=== PATIENT | male | born 1985 | race Caucasian/White ===

== ENCOUNTER 2016-12-12 14:56 | Emergency (ER) | payer OTHER ==
[2016-12-12 15:00] VITALS: BP 139/71
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
--- NOTE | 2016-12-12 15:43 | RAD ---
Left wrist, 3 views, 12/12/2016: History: Injury, pain There is spurring at the level of the distal radioulnar articulation. There is a small cyst in the lunate bone, likely on an arthritic or posttraumatic basis. No acute fracture or dislocation is identified. There is mild subcutaneous edema. IMPRESSION: 1. Mild degenerative change. 2. No acute bony abnormality is detected.
== END 2016-12-12 16:06 | disposition home or self-care (01) ==
LOC: ER 14:56
DX: M25.532 Pain in left wrist (principal); X58.XXXA Exposure to other specified factors, initial encounter; Y93.72 Activity, wrestling; Y92.89 Other specified places as the place of occurrence of the external cause; Y99.8 Other external cause status; F17.210 Nicotine dependence, cigarettes, uncomplicated
CPT/HCPCS: 29125; 73110; 99284-25

== ENCOUNTER 2018-01-30 12:29 | Emergency (ER) | payer OTHER ==
[~2018-01-30] VITALS: Ht 185.4 cm; Wt 111.6 kg
[2018-01-30 12:45] VITALS: BP 128/79
--- NOTE | 2018-01-30 13:14 | RAD ---
EXAM: Right humerus, 2 views. HISTORY: Fall. COMPARISON: None. FINDINGS: 2 views of the right humerus are obtained. There is no fracture, dislocation or subluxation. There is a suspected soft tissue hematoma along the lateral distal upper arm. IMPRESSION: No acute osseous finding. Electronically signed by: Dilcia Meade MD (01/30/2018 1:11 PM) [facility]
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
== END 2018-01-30 13:56 | disposition home or self-care (01) ==
LOC: ER 12:29
DX: S40.021A Contusion of right upper arm, initial encounter (principal); F17.210 Nicotine dependence, cigarettes, uncomplicated; Y04.0XXA Assault by unarmed brawl or fight, initial encounter; Y93.89 Activity, other specified; Y92.89 Other specified places as the place of occurrence of the external cause; Y99.0 Civilian activity done for income or pay
CPT/HCPCS: 73060; 99284

== ENCOUNTER → 2019-03-12 | Outpatient (CLI) | payer BC ==
--- NOTE | 2019-03-12 14:51 | RAD ---
EXAM: Abdomen sonogram. HISTORY: Abnormal liver enzymes laboratory values. TECHNIQUE: Sonographic imaging of the abdomen was performed. COMPARISON: None. FINDINGS: The liver is mildly enlarged. There is hepatic steatosis. No focal hepatic lesion is seen. The common bile duct is mildly dilated for patient age, measuring 6 mm. The gallbladder is unremarkable. The kidneys are unremarkable. The spleen is normal in size. The pancreas is partially obscured due to bowel gas and body habitus. The aorta and inferior vena cava are unremarkable. IMPRESSION: 1. Hepatomegaly and hepatic steatosis. 2. Mild common bile duct dilatation for patient age. Electronically signed by: Dilcia Meade MD (03/12/2019 2:48 PM) [facility]
== END | disposition home or self-care (01) ==
LOC: US 09:36
PROVIDERS: ATTEND Nurse Practitioner Adult Health
DX: K76.0 Fatty (change of) liver, not elsewhere classified (principal); R16.0 Hepatomegaly, not elsewhere classified; K83.8 Other specified diseases of biliary tract
CPT/HCPCS: 76700

== ENCOUNTER 2019-04-26 15:33 | Emergency (ER) | payer BC ==
[~2019-04-26] VITALS: Ht 185.4 cm; Wt 118.4 kg
[2019-04-26 16:09] LABS: BASO # 0.2 x10^3/uL (0.0-0.2); BASO % 1 % (0-3); EOS # 0.4 x10^3/uL (0.0-0.7); EOS % 3 % (0-3); HEMATOCRIT 45.1 % (39.0-53.0); HEMOGLOBIN 15.5 g/dL (13.0-17.5); LYMPH # 2.9 x10^3/uL (1.0-4.8); LYMPH % 24 % (24-48); MEAN CORPUSCULAR HEMOGLOBIN 34 pg (25-35); MEAN CORPUSCULAR HGB CONC 34 g/dL (31-37); MEAN CORPUSCULAR VOLUME 99 fL (79-100); MONO # 0.7 x10^3/uL (0.0-1.1); MONO % 6 % (0-9); NEUT # 8.2 x10^3uL (1.8-7.7); NEUT % 67 % (31-73); PLATELET COUNT 325 x10^3/uL (140-400); RED BLOOD COUNT 4.58 x10^6/uL (4.30-5.70); RED CELL DISTRIBUTION WIDTH 13.8 % (11.5-14.5); WHITE BLOOD COUNT 12.3 x10^3/uL (4.0-11.0)
--- NOTE | 2019-04-26 16:09 | PHYS DOC ---
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 He states that for the past 2-3 weeks, he has had some lower abdominal pain, primarily in his right lower quadrant, which has been waxing and waning, along with some loose stools. He has not had any bloody stools, although he does admit to having 1 prior brief episodes of bloody stools a while back, although since he was asymptomatic and it was resolved, he did not pursue it further. He has not had any vomiting or fevers. He went to his PCPs office on Friday and had a CT scan ordered, which was done today and showed possible appendicitis, with an inflammatory process in the right lower quadrant/cecum. The patient was referred to the emergency department for further evaluation. Review of Systems Review of Systems Constitutional: Denies fever or chills [] Eyes: Denies change in visual acuity, redness, or eye pain [] HENT: Denies nasal congestion or sore throat [] Respiratory: Denies cough or shortness of breath [] Cardiovascular: The patient denies any shortness of breath, chest pain, palpitations, or orthopnea[] GI: No additional information not addressed in HPI [] : Denies dysuria or hematuria [] Musculoskeletal: Denies back pain or joint pain [] Integument: Denies rash or skin lesions [] Neurologic: Denies headache, focal weakness or sensory changes [] Endocrine: Denies polyuria or polydipsia [] All other systems were reviewed and found to be within normal limits, except as documented in this note. Allergies Allergies Allergies Coded Allergies Type Severity Reaction Last Updated Verified No Known Drug Allergies 04/26/19 No Physical Exam Physical Exam PHYSICAL EXAM: CONSTITUTIONAL: Well developed, well nourished HEAD: normocephalic, atraumatic EENT: PERRL, EOMI. Conjunctivae normal color, sclerae non-icteric; moist mucous membranes. NECK: Supple, non-tender; no meningismus. LUNGS: Lungs CTA, breathing even and unlabored. Normal air movement. HEART: Regular rate and rhythm, no murmur CHEST: No deformity; non-tender ABDOMEN: The abdomen is soft, there is tenderness to palpation in the right lower abdomen, without rebound or guarding, bowel sounds are present, the remainder of the abdomen is soft and non-tender, no masses or bruits. EXTREM: Normal ROM; no deformity, no calf tenderness. Normal pulses palpable in all extremities. There is no pedal edema. SKIN: No rash; no diaphoresis NEURO: Alert; normal speech and cognition; CN's grossly intact; strength grossly intact without focal deficit. BACK: No CVA TTP. Current Patient Data Vital Signs Vital Signs Date Time Temp Pulse Resp B/P (MAP) Pulse Ox O2 Delivery O2 Flow Rate FiO2 04/26/19 15:40 98.7 83 18 97 Room Air Lab Results Laboratory Tests Test 04/26/19 15:53 White Blood Count 12.3 x10^3/uL Red Blood Count 4.58 x10^6/uL Hemoglobin 15.5 g/dL Hematocrit 45.1 % Mean Corpuscular Volume 99 fL Mean Corpuscular Hemoglobin 34 pg Mean Corpuscular Hemoglobin Concent 34 g/dL Red Cell Distribution Width 13.8 % Platelet Count 325 x10^3/uL Neutrophils (%) (Auto) 67 % Lymphocytes (%) (Auto) 24 % Monocytes (%) (Auto) 6 % Eosinophils (%) (Auto) 3 % Basophils (%) (Auto) 1 % Neutrophils # (Auto) 8.2 x10^3uL Lymphocytes # (Auto) 2.9 x10^3/uL Monocytes # (Auto) 0.7 x10^3/uL Eosinophils # (Auto) 0.4 x10^3/uL Basophils # (Auto) 0.2 x10^3/uL Sodium Level 140 mmol/L Potassium Level 3.9 mmol/L Chloride Level 104 mmol/L Carbon Dioxide Level 28 mmol/L Anion Gap 8 Blood Urea Nitrogen 7 mg/dL Creatinine 0.9 mg/dL Estimated GFR (Cockcroft-Gault) 98.4 BUN/Creatinine Ratio 8 Glucose Level 100 mg/dL Calcium Level 9.0 mg/dL Total Bilirubin 0.5 mg/dL Aspartate Amino Transf (AST/SGOT) 61 U/L Alanine Aminotransferase (ALT/SGPT) 99 U/L Alkaline Phosphatase 94 U/L Total Protein 8.0 g/dL Albumin 3.9 g/dL Albumin/Globulin Ratio 1.0 Lipase 143 U/L Current Medications Medications (Trade) Dose Ordered Sig/Lakshmi Route PRN Reason Start Time Stop Time Status Last Admin Dose Admin Piperacillin Sod/ Tazobactam Sod 4.5 gm/Sodium Chloride 50 ml @ 100 mls/hr 1X ONCE IV 04/26/19 16:15 04/26/19 16:44 DC Sodium Chloride 50 ml @ As Directed STK-MED ONCE .ROUTE 04/26/19 16:37 04/26/19 16:37 DC Piperacillin Sod/ Tazobactam Sod (Zosyn) 4.5 gm STK-MED ONCE IV 04/26/19 16:37 04/26/19 16:37 DC EKG EKG [] Radiology/Procedures Radiology/Procedures PROCEDURE: CT ABD PELV W/ORAL&IV CONTRAST Examination: CT ABD PELV W/ORAL IV CONTRAST History: Right lower quadrant pain Comparison/Correlation: Abdominal ultrasound 03/12/2019 Findings: Axial images of the abdomen and pelvis were obtained following IV and IV contrast. Sagittal and coronal reformatted images were provided. Visualized lung bases are clear. Fatty infiltration of the liver diffusely noted. Spleen, pancreas, and adrenal glands are normal. Gallbladder fossa is unremarkable. Submucosal fat is noted throughout the colon. Correlate with previous history of inflammatory involvement. Stranding about the cecum is present. There is suggestion of a tubular structure arising from the cecum which is distended with fluid and with surrounding stranding. This is relatively short compared to the typical length of the appendix seen. Terminal ileum is unremarkable other than submucosal fat noted involving it distally. Medial to the cecum, there are multiple lymph nodes present and these are nonenlarged. No loculated fluid collections. No extraluminal gas. Small umbilical hernia contains omental fat. No bowel obstruction. Urinary bladder is unremarkable. Bony structures are unremarkable. Impression: Findings of concern for acute appendicitis. No loculated collection or extraluminal gas. Submucosal fat noted involving the colon and distal ileum. Correlate with history of inflammatory involvement. Fatty infiltration of liver.[] Course & Med Decision Making Course & Med Decision Making Pertinent Labs and Imaging studies reviewed. (See chart for details) []4:55 PM: The patient's condition remains stable. I spoke with Dr. Suarez, Gen. surgery, and Dr. Rivas, hospitalist, at [facility]. Although appendicitis is on the differential, given the patient's time course of illness and other findings, other etiologies, such as inflammatory bowel disease, or right-sided diverticulitis remain on the differential. The patient will be transferred to [facility] for surgical evaluation and further care. 5:30 PM: The patient refused ambulance transfer, despite being explained the risks, and that this was a recommended method of transfer. He states his will drive him to the hospital at [place]. He was counseled to go straight to the hospital and avoid eating until he is told that he may do so by the physicians at the receiving Hospital. He expressed understanding of the risks involved in his decision. Dragon Disclaimer Dragon Disclaimer This electronic medical record was generated, in whole or in part, using a voice recognition dictation system. Departure Departure: Impression: Primary Impression: Abdominal pain Disposition: XFER SHT-TRM HOSP Condition: STABLE Referrals: BJ ELLER MD (PCP) INEZ CRAFT MD Apr 26, 2019 16:09
[2019-04-26] MEDS ORDERED: PIPERACILLIN/TAZOBACTAM 4.5 GM in IV NORMAL SALINE 50ML 50 ML IV ONE (16:15)
[2019-04-26 16:27] LABS: ALBUMIN 3.9 g/dL (3.4-5.0); CREATININE 0.9 mg/dL (0.7-1.3); GFR 98.4; POTASSIUM 3.9 mmol/L (3.5-5.1); TOTAL BILIRUBIN 0.5 mg/dL (0.2-1.0)
[2019-04-26] MEDS ORDERED: PIPERACILLIN/TAZOBACTAM 4.5 GM VIAL IV ONE (16:37)
[2019-04-26] MEDS ORDERED: IV NORMAL SALINE 50ML 50 ML ONE (16:37)
[2019-04-26 17:17] VITALS: BP 135/61
== END 2019-04-26 17:48 | disposition short-term general hospital (02) ==
LOC: ER 15:33
DX: R10.31 Right lower quadrant pain (principal); R19.7 Diarrhea, unspecified; F17.210 Nicotine dependence, cigarettes, uncomplicated
CPT/HCPCS: 36415; 80053; 83690; 85025; 96365; 99285; J2543

== ENCOUNTER → 2019-04-26 | Outpatient (CLI) | payer BC ==
[~2019-04-26] MED LIST: IOHEXOL 240 MG/ML 50ML VIAL. ONE; IOHEXOL 300 MG/ML 75 ML VIAL. IV ONE
--- NOTE | 2019-04-26 14:22 | RAD ---
Examination: CT ABD PELV W/ORAL IV CONTRAST History: Right lower quadrant pain Comparison/Correlation: Abdominal ultrasound 03/12/2019 Findings: Axial images of the abdomen and pelvis were obtained following IV and IV contrast. Sagittal and coronal reformatted images were provided. Visualized lung bases are clear. Fatty infiltration of the liver diffusely noted. Spleen, pancreas, and adrenal glands are normal. Gallbladder fossa is unremarkable. Submucosal fat is noted throughout the colon. Correlate with previous history of inflammatory involvement. Stranding about the cecum is present. There is suggestion of a tubular structure arising from the cecum which is distended with fluid and with surrounding stranding. This is relatively short compared to the typical length of the appendix seen. Terminal ileum is unremarkable other than submucosal fat noted involving it distally. Medial to the cecum, there are multiple lymph nodes present and these are nonenlarged. No loculated fluid collections. No extraluminal gas. Small umbilical hernia contains omental fat. No bowel obstruction. Urinary bladder is unremarkable. Bony structures are unremarkable. Impression: Findings of concern for acute appendicitis. No loculated collection or extraluminal gas. Submucosal fat noted involving the colon and distal ileum. Correlate with history of inflammatory involvement. Fatty infiltration of liver. PQRS Compliance Statement: One or more of the following individualized dose reduction techniques were utilized for this examination: 1. Automated exposure control 2. Adjustment of the mA and/or kV according to patient size 3. Use of iterative reconstruction technique Electronically signed by: Wes Almonte MD (04/26/2019 2:19 PM) [facility]
== END | disposition home or self-care (01) ==
LOC: CT 13:10
PROVIDERS: ATTEND Family Medicine
DX: K76.0 Fatty (change of) liver, not elsewhere classified (principal)
CPT/HCPCS: 74177; Q9967

== ENCOUNTER → 2019-05-21 | Outpatient (CLI) | payer BC ==
[2019-04-26 17:17] VITALS: BP 135/61
--- NOTE | 2019-05-25 09:37 | RAD ---
VENOUS LOWER EXTREMITY LEFT History: Left leg discoloration and swelling. Comparison: None. Discussion: Multiple longitudinal and transverse high resolution real-time images of the venous system of left lower extremity were obtained with color and Doppler sampling. The common femoral, superficial femoral, popliteal and proximal calf veins are all patent and demonstrate normal flow and compressibility. Normal respiratory phasicity and augmentation is present. Left medial knee varicose veins noted within the region of the patient's concern. Impression: 1. No evidence of deep vein thrombosis. 2. Varicose veins noted. Electronically signed by: Cyrus Valera DO (05/25/2019 9:34 AM) [email or web address]
== END | disposition home or self-care (01) ==
LOC: US 13:50
PROVIDERS: ATTEND Family Medicine
DX: I86.8 Varicose veins of other specified sites (principal)
CPT/HCPCS: 93971

== ENCOUNTER 2019-07-10 13:09 | Emergency (ER) | payer BC, OTHER ==
[~2019-07-10] VITALS: Ht 185.4 cm; Wt 120.0 kg
[2019-07-10 13:09] VITALS: BP 139/61
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
--- NOTE | 2019-07-10 14:05 | RAD ---
EXAM: Left shoulder, 3 views. HISTORY: Pain. COMPARISON: None. FINDINGS: 3 views of the left shoulder obtained. There is no fracture, dislocation or subluxation. IMPRESSION: No acute osseous finding. Electronically signed by: Dilcia Meade MD (07/10/2019 2:02 PM) [id number]
[2019-07-10] MEDS ORDERED: NAPR-683 PO (14:26)
== END 2019-07-10 14:45 | disposition home or self-care (01) ==
LOC: ER 13:09
DX: S43.402A Unspecified sprain of left shoulder joint, initial encounter (principal); F17.210 Nicotine dependence, cigarettes, uncomplicated; Y08.89XA Assault by other specified means, initial encounter; Y93.89 Activity, other specified; Y92.148 Other place in prison as the place of occurrence of the external cause; Y99.0 Civilian activity done for income or pay
CPT/HCPCS: 73030; 99283

== ENCOUNTER 2020-06-15 13:21 | Emergency (ER) | payer OTHER ==
[~2020-06-15] VITALS: Ht 185.4 cm; Wt 125.0 kg
[~2020-06-15 13:21] MED LIST changes: -IOHEXOL 240 MG/ML 50ML VIAL. ONE; -IOHEXOL 300 MG/ML 75 ML VIAL. IV ONE; +NAPR-683 PO
[2020-06-15 13:33] VITALS: BP 150/89
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
--- NOTE | 2020-06-15 13:57 | RAD ---
EXAM: 3 Views Right Shoulder DATE: 06/15/2020 1:37 PM INDICATION: Reason: shoulder injury, right pain / Spl. Instructions: / History: COMPARISON: No Prior FINDINGS: There is no evidence for acute fracture or dislocation. AC joint is congruent. Humeral head is not hi gh riding. IMPRESSION: 1. No acute fracture or dislocation. Electronically signed by: Ruddy Keene MD (06/15/2020 1:54 PM) [facility]
== END 2020-06-15 14:21 | disposition home or self-care (01) ==
LOC: ER 13:33
DX: S46.911A Strain of unspecified muscle, fascia and tendon at shoulder and upper arm level, right arm, initial encounter (principal); F17.210 Nicotine dependence, cigarettes, uncomplicated; Y08.89XA Assault by other specified means, initial encounter; Y93.89 Activity, other specified; Y92.89 Other specified places as the place of occurrence of the external cause; Y99.8 Other external cause status
CPT/HCPCS: 73030; 99283

== ENCOUNTER 2020-11-03 07:28 | Inpatient (IN) | payer BC, OTHER ==
[~2020-11-03] VITALS: Ht 185.4 cm; Wt 118.0 kg
[2020-11-03] VITALS (11 sets, daily range): BP systolic 99–131; BP diastolic 56–82
[2020-11-03] MEDS ORDERED: IV NORMAL SALINE 1,000ML 1,000 ML IV ONE ×2 (07:45→10:00)
[2020-11-03 07:56] LABS: BASO % 0 % (0-3); EOS # 0.4 x10^3/uL (0.0-0.7); EOS % 4 % (0-3); HEMATOCRIT 42.4 % (39.0-53.0); HEMOGLOBIN 14.9 g/dL (13.0-17.5); LYMPH # 3.1 x10^3/uL (1.0-4.8); LYMPH % 31 % (24-48); MEAN CORPUSCULAR HEMOGLOBIN 35 pg (25-35); MEAN CORPUSCULAR HGB CONC 35 g/dL (31-37); MEAN CORPUSCULAR VOLUME 101 fL (79-100); MONO # 0.6 x10^3/uL (0.0-1.1); MONO % 6 % (0-9); NEUT # 5.7 x10^3uL (1.8-7.7); NEUT % 58 % (31-73); PLATELET COUNT 264 x10^3/uL (140-400); WHITE BLOOD COUNT 9.9 x10^3/uL (4.0-11.0)
[2020-11-03 08:17] LABS: ALBUMIN 3.8 g/dL (3.4-5.0); ALBUMIN/GLOBULIN RATIO 1.1 (1.0-1.7); CALCIUM 8.1 mg/dL (8.5-10.1); GFR 86.1; TOTAL BILIRUBIN 0.3 mg/dL (0.2-1.0); TOTAL PROTEIN 7.4 g/dL (6.4-8.2)
[2020-11-03 08:19] LABS: ETHANOL 158 mg/dL (0-10); SALIC 5.2 mg/dL (2.8-20.0)
[2020-11-03 08:20] LABS: ACETAMIN < 2.0 mcg/mL (10-30)
[2020-11-03 08:22] LABS: POTASSIUM 2.8 mmol/L (3.5-5.1)
--- NOTE | 2020-11-03 08:23 | PHYS DOC ---
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 The patient did leave a suicide note and this was an attempt to kill himself. The patient took 2 bottles of diazepam. One bottle was 2 mg tablet the other was 5 mg. He took these around 530 this morning. The patient's provides most of the history. She states that 1 bottle were 5 mg tablets and the other bottle were 2 mg tablets. These were prescribed as a 1 month supply 3 times a day. They were prescribed 22 days ago. The patient and his have not been taking the maximum dose per day. An unknown number of pills were left. The patient also drank "a tumbler full of vodka". Review of Systems: Review of Systems: Unable to perform due to patient's condition Current Medications: Current Meds: Current Medications Medications (Trade) Dose Ordered Sig/Lakshmi Start Time Stop Time Status Last Admin Dose Admin Sodium Chloride 1,000 ml @ 1,000 mls/hr 1X ONCE 11/03/20 07:45 11/03/20 08:44 11/03/20 07:44 1,000 MLS/HR Allergies: Allergies: Allergies Coded Allergies Type Severity Reaction Last Updated Verified No Known Drug Allergies 04/26/19 No Physical Exam: PE: Constitutional: Well developed, well nourished, mild acute distress. [] HENT: Normocephalic, atraumatic, bilateral external ears normal, oropharynx moist, no oral exudates, nose normal. [] Eyes: PERRLA, EOMI, conjunctiva normal, no discharge. [] Neck: Normal range of motion, no tenderness, supple, no stridor. [] Cardiovascular: Heart rate 103, regular rhythm, no murmur [] Lungs & Thorax: Bilateral breath sounds clear to auscultation. On 6 L nasal ca nnula. [] Abdomen: Bowel sounds normal, soft, no tenderness, no masses, no pulsatile masses. [] Skin: Warm, dry, no erythema, no rash. [] Back: No tenderness, no CVA tenderness. [] Extremities: No tenderness, no cyanosis, no clubbing, ROM intact, no edema. [] Neurologic: Very sleepy but arousable for a few seconds. [] Psychologic: Depressed [] Current Patient Data: Vital Signs: Vital Signs Date Time Temp Pulse Resp B/P (MAP) Pulse Ox O2 Delivery O2 Flow Rate FiO2 11/03/20 07:29 97.9 104 14 115/57 (76) 86 Room Air EKG: EKG: Sinus tachycardia, rate 103, leftward axis, no ST elevations or depression. [] Radiology/Procedures: Radiology/Procedures: [] Heart Score: C/O Chest Pain: N/A Risk Factors: Risk Factors: DM, Current or recent (<one month) smoker, HTN, HLP, family history of CAD, obesity. Risk Scores: Score 0 - 3: 2.5% MACE over next 6 weeks - Discharge Home Score 4 - 6: 20.3% MACE over next 6 weeks - Admit for Clinical Observation Score 7 - 10: 72.7% MACE over next 6 weeks - Early Invasive Strategies Course & Med Decision Making: Course & Med Decision Making Pertinent Labs and Imaging studies reviewed. (See chart for details) On arrival the patient was on oxygen via EMS. He was able to answer 1 or 2 questions at a time when he arrived. He was very drowsy. Based on the timeline, poison control did not advise any activated charcoal. The 6 L of nasal cannula has not quite kept his oxygen above 90 so we placed him in a simple mask. Based on my discussion with the , they got their prescriptions on 11 October. It is November 03 today. Given the trend of how they have been taking these medications, it seems most likely that there were as many as 46 5 mg tablets left and 68 2 mg tablets. The patient will have altered mental status for an undetermined amount of time. Once he is awake and alert he will have a behavioral health screening. His labs are remarkable for a low potassium of 2.8. We will replace with 40 mEq IV. I spoke with the hospitalist, Dr. Dunlap and he has accepted the patient for admission to the ICU. [] Dragon Disclaimer: Dragon Disclaimer: This electronic medical record was generated, in whole or in part, using a voice recognition dictation system. Departure Departure: Impression: Primary Impression: Intentional benzodiazepine overdose Qualified Codes: T42.4X2A - Poisoning by benzodiazepines, intentional self- harm, initial encounter Additional Impression: Suicide attempt by benzodiazepine overdose Disposition: ADMITTED INPATIENT Admitting Physician: Lamont Dunlap Madi, Ahmed Condition: STABLE Referrals: LAMONT DUNLAP MD (PCP) ELIZABETH LANGLEY DO Nov 03, 2020 08:23
[2020-11-03] MEDS: POTASSIUM CHLORIDE 20MEQ 100 ML IV SCH ×2 (09:16→09:30)
--- NOTE | 2020-11-03 09:58 | EKG ---
[address] [address] Test Date: 2020-11-03 Test Time: 07:33:15 Pat Name: BISMARK MUNOZ Department: Room: Gender: M Order Builder Loader: IJEOMA : 1985 Requested By: ELIZABETH LANGLEY Order Number: [id number] Reading MD: Measurements Intervals [place] Rate: 103 P: 44 [place]: 144 QRS: -16 QRSD: 114 T: 14 QT: 366 QTc: 482 Interpretive Statements SINUS TACHYCARDIA LEFTWARD AXIS R-S TRANSITION ZONE IN V LEADS DISPLACED TO THE LEFT OTHERWISE NORMAL ECG RI6.02 No previous ECG available for comparison
[2020-11-03] MEDS ORDERED: ONDANSETRON PF 4 MG/2 ML VIAL. IVP PRN (10:00)
[2020-11-03 12:45] LABS: ALBUMIN 3.4 g/dL (3.4-5.0); DIRECT BILIRUBIN 0.1 mg/dL (0.0-0.2); TOTAL BILIRUBIN 0.4 mg/dL (0.2-1.0); TOTAL PROTEIN 6.6 g/dL (6.4-8.2)
[2020-11-03] MEDS ORDERED: FAMOTIDINE 20 MG TABLET PO ONE (15:15)
[2020-11-03] MEDS ORDERED: THIAMINE 100 MG TABLET. PO ONE (15:15)
[2020-11-03] MEDS ORDERED: FOLIC ACID 1 MG TABLET PO ONE (15:15)
[2020-11-03] MEDS ORDERED: MULTIVITAMIN with MINERAL TABLET. PO ONE (15:15)
[2020-11-03 15:37] LABS: SALIC 4.8 mg/dL (2.8-20.0)
[2020-11-03 15:38] LABS: ACETAMIN < 2.0 mcg/mL (10-30)
--- NOTE | 2020-11-03 15:38 | EKG ---
[address] [address] Test Date: 2020-11-03 Test Time: 15:35:07 Pat Name: BISMARK MUNOZ Department: Room: [facility] 1 Gender: M Healthcare Management: : 1985 Requested By: BJ ELLER Order Number: [id number] Reading MD: Measurements Intervals [place] Rate: 81 P: 31 CO: 130 QRS: -10 QRSD: 108 T: 2 QT: 366 QTc: 431 Interpretive Statements SINUS RHYTHM LEFTWARD AXIS NO SPECIFIC ECG ABNORMALITIES RI6.01 No previous ECG available for comparison
--- NOTE | 2020-11-03 15:53 | RAD ---
XR CHEST 1V CLINICAL INDICATIONS: Detox COMPARISON: None available Findings: Small bilateral pleural effusions are seen. There is right lung base infiltrate or atelecta sis. Mild elevation of the right hemidiaphragm. No pneumothorax is seen. The heart size and mediastin um are unremarkable. IMPRESSION: Small bilateral pleural effusions. Right lung base infiltrate or atelectasis. Electronically signed by: Mc Gomez MD (11/03/2020 3:51 PM) [id number]
[2020-11-03] MEDS ORDERED: HALOPERIDOL LACT 5 MG/ML VIAL. IM PRN (16:30)
[2020-11-03] MEDS ORDERED: diphenhydrAMINE 50 MG/ML VIAL IVP PRN (16:30)
[2020-11-03] MEDS ORDERED: HALOPERIDOL LACT 5 MG/ML VIAL. IV PRN (16:45)
[2020-11-03] MEDS ORDERED: IV NORMAL SALINE 500ML 500 ML IV PRN (17:15)
[2020-11-03] MEDS ORDERED: ATROPINE 0.5 MG/5 ML DISP.SYRIN. IV PRN (17:15)
[2020-11-03] MEDS ORDERED: DEXMEDETOMIDINE 400 MCG in IV NORMAL SALINE 100ML 96 ML IV PRN (17:15)
--- NOTE | 2020-11-03 18:38 | HP ---
ADMIT DATE: 11/03/2020 HISTORY OF PRESENT ILLNESS: A 35-year-old male came in through the Emergency Room, apparently has been having a lot of stress, apparently was trying to kill himself with 2 bottles of diazepam, approximately 1 bottle of 2 mg, and the other with 5 mg, not quite sure of the quantity; however, the patient did attempt and noted that he strong family history unfortunately of suicide, loss of the parent last year, multiple stressful events. Also, a problem with alcoholism and the like. The patient has past medical history of severe depression. He also has eye disorder, corneas tearing, previous SI attempt in 2016 and the like. Otherwise, the patient was admitted for further evaluation of his attempted suicide, alcohol withdrawal, hypokalemia, elevated liver enzymes and a suicidal attempt. PAST MEDICAL HISTORY: As described above along with his previous suicide attempt in 2014, 2020. Alcohol abuse as noted. He has had brother, sister and father committed suicide. Family problems. Three family members lost of suicide. Mother of COVID. ALLERGIES: No known drug allergies. MEDICATIONS: The only one he is taking on his own course was the diazepam as well as the naproxen, which was discontinued obviously. SOCIAL HISTORY: The patient drinks hard liquor on a regular basis and had recently hard liquor. Also, has about [id number] history of smoking. Denies other drug use. The patient is a full code. The patient is , lives with his . REVIEW OF SYSTEMS: Unable to give any history as the patient is sedated at the present time. PHYSICAL EXAMINATION: VITAL SIGNS: The patient does have blood pressure of 110/60, respiration 18, pulse 85, oxygen saturation on 6 liters at 99%, afebrile. HEENT: The patient's head was atraumatic, normocephalic. EYES: PERRLA, somewhat constricted. NEUROLOGIC: The patient otherwise resting fairly comfortably there. Presently, had to be sedated. Ativan did not work and then placed on CIWA protocol and Precedex per protocol for this individual's violent behavior. Again he responded to V Haldol and had up the latter from the Ativan to Haldol to the Precedex, which seems to have helped him calm down. LUNGS: Diminished, basically clear. CARDIOVASCULAR: S1, S2. Tachycardic. ABDOMEN: Soft, nontender. EXTREMITIES: No clubbing, cyanosis, edema. NEUROLOGIC: Totally sedated as the patient has been sedated with Precedex since he was so violent pulling out his restraints and threatening to hurt other people as well as himself. LABORATORY DATA: The patient's EKG shows sinus tachycardia, otherwise sinus rhythm. Chest x-ray interestingly enough does show possible infiltrative process as well as a small bilateral pleural effusion right lung base and atelectasis. We will start him on IV antibiotic therapy and a lactic acid on him as well and blood cultures for that matter. The patient otherwise is sedate, we will call Psychiatry obviously and make further evaluation. IMPRESSION AND PLAN: Suicide attempt, hypokalemia, possible pneumonia, bilateral pleural effusions, elevated liver enzymes, alcohol abuse, strong family history of depression with multiple suicide attempts in the past for this gentleman who came in here obviously in the ICU for close monitoring one-on-one along with the Precedex, Psychiatric consultation, control of his potassium, start him on IV antibiotic therapy and make further evaluation on this patient. MÓNICA/DIPAK/BLANQUITA DR: Jennifer TID: [id number]
[2020-11-03 19:02] LABS: ALBUMIN 3.4 g/dL (3.4-5.0); GFR 86.1; POTASSIUM 4.4 mmol/L (3.5-5.1); TOTAL BILIRUBIN 0.8 mg/dL (0.2-1.0); TOTAL PROTEIN 6.8 g/dL (6.4-8.2)
[2020-11-03] MEDS: IV NORMAL SALINE 1,000ML 1,000 ML IV SCH (20:39)
[2020-11-03] MEDS: DOXYCYCLINE HYCLATE 100 MG in IV DEXTROSE 5% 100 ML IV SCH (21:00)
[2020-11-03] MEDS: ENOXAPARIN 40 MG/0.4 ML SYRINGE. SQ SCH (21:07)
[2020-11-03] MEDS: FAMOTIDINE 20 MG/2 ML VIAL IVP SCH (21:08)
[2020-11-04] VITALS (22 sets, daily range): BP systolic 113–148; BP diastolic 59–98
[2020-11-04 01:14] LABS: BILIRUBIN,URINE NEG (NEG); CLARITY,URINE CLEAR; COLOR,URINE YELLOW; GLUCOSE,URINE NEG (NEG); NITRITE,URINE NEG (NEG); UROBILINOGEN,URINE 0.2 mg/dL (0.2 mg/dL)
[2020-11-04 01:16] LABS: BACTERIA,URINE 0 /HPF (0-FEW); SQUAMOUS EPITHELIAL CELL,UR OCC /LPF; WBC,URINE 0 /HPF (0-4)
[2020-11-04] MEDS: IV NORMAL SALINE 1,000ML 1,000 ML IV SCH ×4 (01:58→17:10)
[2020-11-04 06:57] LABS: BASO # 0.1 x10^3/uL (0.0-0.2); BASO % 1 % (0-3); EOS # 0.3 x10^3/uL (0.0-0.7); EOS % 2 % (0-3); HEMATOCRIT 39.5 % (39.0-53.0); HEMOGLOBIN 13.9 g/dL (13.0-17.5); LYMPH # 2.6 x10^3/uL (1.0-4.8); LYMPH % 18 % (24-48); MEAN CORPUSCULAR HEMOGLOBIN 36 pg (25-35); MEAN CORPUSCULAR HGB CONC 35 g/dL (31-37); MEAN CORPUSCULAR VOLUME 101 fL (79-100); MONO # 0.8 x10^3/uL (0.0-1.1); MONO % 6 % (0-9); NEUT # 10.5 x10^3uL (1.8-7.7); NEUT % 73 % (31-73); PLATELET COUNT 219 x10^3/uL (140-400); RED BLOOD COUNT 3.93 x10^6/uL (4.30-5.70); WHITE BLOOD COUNT 14.4 x10^3/uL (4.0-11.0)
[2020-11-04 07:06] LABS: ALBUMIN 3.1 g/dL (3.4-5.0); ALBUMIN/GLOBULIN RATIO 0.9 (1.0-1.7); CALCIUM 8.2 mg/dL (8.5-10.1); GFR 86.1; POTASSIUM 3.9 mmol/L (3.5-5.1); TOTAL BILIRUBIN 0.7 mg/dL (0.2-1.0); TOTAL PROTEIN 6.5 g/dL (6.4-8.2)
[2020-11-04] MEDS: DOXYCYCLINE HYCLATE 100 MG in IV DEXTROSE 5% 100 ML IV SCH ×2 (09:04→21:39)
[2020-11-04] MEDS: FAMOTIDINE 20 MG/2 ML VIAL IVP SCH ×2 (09:04→19:56)
[2020-11-04] MEDS: NICOTINE 21MG PATCH. TD SCH (10:36)
[2020-11-04] MEDS: ENOXAPARIN 40 MG/0.4 ML SYRINGE. SQ SCH (19:57)
--- NOTE | 2020-11-05 00:16 | PN ---
SUBJECTIVE: A 35-year-old male in with recorded suicide attempt, alcohol withdrawal. The patient is doing reasonably better. He has been taken off his IV medication or tapering off anyway and continues on IV banana bag, started to eat a little bit. We have allowed him to release some of his restraints as the patient has done well, coming off the Precedex infusion, seems to be resting more comfortably. Oxygen saturation discussed with the . OBJECTIVE: VITAL SIGNS: Blood pressure 130/80, respiratory rate 16, pulse anywhere from 90-110, afebrile. Room air 96%. Apparently been bitten by a tick on his right side that was removed. He is on doxycycline and Rocephin for possible pneumonitis as well. Indicates, he is feeling better. Psych consult in place. LUNGS: Diminished but clear. CARDIOVASCULAR: Stable. EYES: PERRL, reactive to light and accommodation. EXTREMITIES: No clubbing, cyanosis, or edema. NEUROLOGIC: More alert. LABORATORY DATA: White count was elevated at 14 and hemoglobin and hematocrit of 13 and 39. The patient's liver enzymes are coming down as well. IMPRESSION AND PLAN: Alcohol withdrawal, suicide attempt, elevated liver enzymes, hypokalemia. Continue to monitor in the ICU. We will make further adjustments on medications as indicated. TYRA DR: Jennifer TID: [id number]
[2020-11-05] MEDS: IV NORMAL SALINE 1,000ML 1,000 ML IV SCH ×2 (02:00→09:04)
[2020-11-05 07:44] VITALS: BP 142/90
[2020-11-05] MEDS ORDERED: LACTOBACILLUS RHAMNOSUS GG 1 CAPSULE. PO SCH (09:00)
[2020-11-05] MEDS: DOXYCYCLINE HYCLATE 100 MG in IV DEXTROSE 5% 100 ML IV SCH (09:04)
[2020-11-05] MEDS: FAMOTIDINE 20 MG/2 ML VIAL IVP SCH (09:04)
[2020-11-05] MEDS: NICOTINE 21MG PATCH. TD SCH (09:04)
[2020-11-05 11:58] VITALS: BP 143/95
[2020-11-05] MEDS ORDERED: VENL37.5 PO (14:09)
[2020-11-05] MEDS ORDERED: DOXY100C2 PO (14:09)
== END 2020-11-05 14:30 | disposition home or self-care (01) | DRG 918 ==
LOC: ER 07:28 → ICU 09:46 → 1 SOUTH 11-04 22:45
PROVIDERS: ADMIT Internal Medicine; ATTEND Family Medicine
DX: T42.4X2A Poisoning by benzodiazepines, intentional self-harm, initial encounter (principal); F10.239 Alcohol dependence with withdrawal, unspecified; F17.210 Nicotine dependence, cigarettes, uncomplicated; E87.6 Hypokalemia; Z91.5 Personal history of self-harm; Z81.8 Family history of other mental and behavioral disorders; Y92.89 Other specified places as the place of occurrence of the external cause; Z20.822 Contact with and (suspected) exposure to COVID-19
CPT/HCPCS: 36415; 71045; 80053; 80076; 80329; 81001; 82140; 83605; 83690; 83735; 83880; 84145; 84443; 84484; 85025; 87426; 93005; 96360; G0480; J0696; J1630; J1650; J3480; J3490; 99285-25; J7030